=== PATIENT | male | born 1985 | race Caucasian/White ===

== ENCOUNTER 2021-09-07 06:35 | Emergency (ER) | payer OTHER ==
[~2021-09-07] VITALS: Ht 182.9 cm; Wt 100.0 kg
[2021-09-07 06:37] VITALS: BP 138/74
[2021-09-07] MEDS ORDERED: BACITRACIN ZINC OINT UDPKT TOP ONE (07:30)
[2021-09-07] MEDS ORDERED: AMOXICILLIN/POTASSIUM CLAVULANATE 875/125MG TAB PO ONE (07:30)
[2021-09-07] MEDS ORDERED: ACETAMINOPHEN 325MG TABLET PO ONE (07:30)
[2021-09-07] MEDS ORDERED: TETANUS, DIPHTHERIA, PERTUSSIS VAC/PF 0.5ML (>10YR OLD) IM ONE (07:30)
[2021-09-07] MEDS ORDERED: LIDOCAINE HCL/EPINEPHRINE 1%-EPI 1:100,000 20 ML VIAL INFIL ONE (07:30)
[2021-09-07] MEDS ORDERED: MUPI1OIN4 TP (08:20)
[2021-09-07] MEDS ORDERED: AMOX-424 MT (08:20)
== END 2021-09-07 08:57 ==
LOC: ER 06:56
DX: S51.811A Laceration without foreign body of right forearm, initial encounter (principal); W54.0XXA Bitten by dog, initial encounter; Y93.89 Activity, other specified; Y92.89 Other specified places as the place of occurrence of the external cause; Y99.8 Other external cause status
CPT/HCPCS: 73090; 90471; 90715; 99284; J3490